=== PATIENT | male | born 1950 | race Caucasian/White ===

== ENCOUNTER 2020-03-29 08:52 | Day surgery (SDC) | payer MEDICARE, OTHER ==
[~2020-03-29] VITALS: Ht 185.4 cm; Wt 109.5 kg
[2020-03-29] MEDS ORDERED: LACTATED RINGERS 1,000 ML IV SCH (09:51)
[2020-03-29] MEDS ORDERED: CHLORHEXIDINE 15 ML UDC MM ONE (10:00)
[2020-03-29] MEDS ORDERED: QUNOL PO (10:01)
[2020-03-29] MEDS ORDERED: ZOLP10TA PO (10:01)
[2020-03-29] MEDS ORDERED: TADA5TAB2 PO (10:01)
[2020-03-29] MEDS ORDERED: METF500T17 PO (10:01)
[2020-03-29] MEDS ORDERED: MULT-751 PO (10:01)
[2020-03-29] MEDS ORDERED: TAMS-11 PO (10:01)
[2020-03-29] MEDS ORDERED: ASPI-496 PO (10:01)
[2020-03-29] MEDS ORDERED: NIFE20CA PO (10:01)
[2020-03-29] MEDS ORDERED: BUPR75TA6 PO (10:01)
[2020-03-29] MEDS ORDERED: LOSA1TAB22 PO (10:01)
[2020-03-29] MEDS ORDERED: SAW450CA7 PO (10:01)
[2020-03-29] MEDS ORDERED: MAGNESIUM PO (10:01)
[2020-03-29] MEDS ORDERED: CHLORHEXIDINE 15 ML UDC ONE (10:07)
[2020-03-29 10:11] VITALS: BP 146/74
[2020-03-29] MEDS ORDERED: PROPOFOL 10 MG/ML, 20ML ONE ×6 (10:29→11:25)
[2020-03-29 10:41] LABS: ALANINE AMINOTRANSFERASE 330 U/L (12-78); ALBUMIN 3.7 g/dL (3.4-5.0); ANION GAP 8 mmol/L (5-15); CALCIUM 9.7 mg/dL (8.5-10.1); CHLORIDE 107 mmol/L (98-107); CREATININE 0.83 mg/dL (0.7-1.3)
[2020-03-29 10:43] LABS: ALKALINE PHOSPHATASE 653 U/L (45-117); BILIRUBIN,TOTAL 4.8 mg/dL (0.2-1.0); TOTAL PROTEIN 7.4 g/dL (6.4-8.2)
== END 2020-03-29 14:05 | disposition home or self-care (01) ==
LOC: OUT 08:52
PROVIDERS: ATTEND Internal Medicine Geriatric Medicine
DX: K86.89 Other specified diseases of pancreas (principal); C25.0 Malignant neoplasm of head of pancreas; C17.0 Malignant neoplasm of duodenum; I10 Essential (primary) hypertension; E11.9 Type 2 diabetes mellitus without complications; Z79.82 Long term (current) use of aspirin; Z79.84 Long term (current) use of oral hypoglycemic drugs; Z79.899 Other long term (current) drug therapy
CPT/HCPCS: 36415; 43239; 43242; 80053; 88172; 88173; 88177; 88305; 88307; 93005; J2704